=== PATIENT | female | born 1955 | race Caucasian/White ===

== ENCOUNTER 2017-11-30 09:10 | Emergency (ER) | payer BC ==
[2017-11-30 09:35] VITALS: BP 136/95
[2017-11-30] MEDS ORDERED: Aspirin Low Dose CHEW TAB* 81 MG PO ONE (09:52)
--- NOTE | 2017-11-30 10:37 | UC ---
Cardiac HPI - HPI Summary HPI Summary: pt, accompanied by , p/w complaint of chest pain x 2 weeks. pt describes the pain as a constant 4/10 pressure/ache. it started in bl shoulder. pain radiates down the rt arm. pain has been interferring with sleep as pt reports that she cannot get comfortable. sx are worse with using upper ext. no n/w/t. pt denies cough, n/v/abd pain, dizziness, sob, jaw pain, unsteady gate or confusion. there is no known injury. - History of Current Complaint Chief Complaint: UCChestPain Stated Complaint: CHEST PAIN,RIGHT ARM PAIN 2 WEEKS Time Seen by Provider: 11/30/17 09:17 Hx Obtained From: Patient, Family/Field Property Loss Specialist Onset/Duration: Sudden Onset, Lasting Weeks - 2, Still Present, Worse Since - today Initial Severity: Moderate Current Severity: Moderate Pain Intensity: 4 Chest Pain Location: Discrete at:, Upper Sternal, Right Anterior Character: Pressure/Squeezing Aggravating Factor(s): Nothing Alleviating Factor(s): Nothing Associated Signs & Symptoms: Positive: Chest Pain, Diaphoresis. Negative: Headaches, Numbness, Tingling, Weakness, Dizziness, SOB, Swelling, Syncope, Fever, Nausea/Vomiting, Palpitations, Cough, Hemoptysis, Abdominal Pain, Calf Pain/Swelling - Risk Factors Cardiac Risk Factors: Diabetes, Elevated Lipids - Allergy/Home Medications Allergies/Adverse Reactions: Allergies Allergy/AdvReac Type Severity Reaction Status Date / Time Penicillins Allergy Rash Verified 11/30/17 09:29 PMH/Surg Hx/FS Hx/Imm Hx Previously Healthy: No Endocrine History: Diabetes, Dyslipidemia Psychological History: Anxiety - Surgical History Surgical History: Yes Surgery Procedure, Year, and Place: C SECTION, BUONIONECTOMY - Family History Known Family History: Positive: Cardiac Disease, Hypertension - Social History Lives: With Family Alcohol Use: None Substance Use Type: None Smoking Status (MU): Never Smoked Tobacco Review of Systems Constitutional: Negative Eyes: Blurred Vision ENT: Negative Respiratory: Negative Cardiovascular: Chest Pain Gastrointestinal: Negative Genitourinary: Negative Musculoskeletal: Other: - chest pain Neurological: Negative Psychological: Negative Is Patient Immunocompromised?: No All Other Systems Reviewed And Are Negative: Yes Physical Exam Triage Information Reviewed: Yes Appearance: Well-Appearing, Well-Nourished, Pain Distress - mild Vital Signs: Initial Vital Signs Temp 97.7 F 11/30/17 09:31 Pulse 83 11/30/17 09:31 Resp 20 11/30/17 09:31 BP 136/95 11/30/17 09:31 Pulse Ox 99 11/30/17 09:31 Vital Signs Reviewed: Yes Eyes: Positive: Conjunctiva Clear. Negative: Discharge ENT: Positive: Hearing grossly normal. Negative: Muffled voice, Hoarse voice Neck: Positive: Supple, Nontender, No Lymphadenopathy Respiratory: Positive: Lungs clear, Normal breath sounds, No respiratory distress, No accessory muscle use Cardiovascular: Positive: RRR, No Murmur, Pulses Normal Musculoskeletal Exam: Normal Neurological: Positive: Alert, Muscle Tone Normal Psychological: Positive: Normal Response To Family, Age Appropriate Behavior Skin Exam: Normal Skin: Positive: Other - warm dry normal color - Differential Diagnoses - Chest Pain Differential Diagnosis/HQI/PQRI: Acute ME, ACS, Angina, Aortic Aneurysm, Chest Wall, GI Disease, Pulmonary Embolism - Clinical Impression Provider Diagnoses: cp r/o acs Discharge - Discharge Plan Condition: Stable Disposition: AGAINST MEDICAL ADVICE Referrals: Bekah Mobley MD [Primary Care Provider] -
== END 2017-11-30 10:10 | disposition left against medical advice (07) ==
LOC: UCCORT 09:10
DX: R07.9 Chest pain, unspecified (principal); E11.9 Type 2 diabetes mellitus without complications; E78.5 Hyperlipidemia, unspecified; F41.9 Anxiety disorder, unspecified
CPT/HCPCS: 93005; 99202; A9270-GY; G0463